=== PATIENT | female | born 1955 | race Caucasian/White ===

== ENCOUNTER 2022-02-10 13:56 | Emergency (ER) | payer MEDICARE ==
[~2022-02-10] VITALS: Ht 160 cm; Wt 68.0 kg
[2022-02-10 14:12] VITALS: BP_SYST 126
--- NOTE | 2022-02-10 15:03 | NUR ---
EKG GIVEN TO FOR INTERPRETATION.
[2022-02-10] MEDS ORDERED: SPIR25TA PO (15:12)
[2022-02-10] MEDS ORDERED: PROP10TA10 PO (15:12)
[2022-02-10] MEDS ORDERED: SIMV-43 PO (15:12)
[2022-02-10] MEDS ORDERED: FURO-150 PO (15:12)
[2022-02-10 15:29] LABS: BASOPHILS % (AUTO) 0.5 % (0.0-2.0); EOSINOPHILS # (AUTO) 0.3 K/uL (0.0-0.4); EOSINOPHILS % (AUTO) 7.4 % (0.0-4.0); HEMATOCRIT 26.4 % (36-48); HEMOGLOBIN 8.6 g/dL (12.0-16.0); LYMPHOCYTES # (AUTO) 0.6 K/uL (1.0-5.5); LYMPHOCYTES % (AUTO) 13.8 % (20.5-51.5); MEAN CORPUSCULAR HEMOGLOBIN 33 pg (27-31); MEAN CORPUSCULAR HGB CONC 33 % (32-36); MEAN CORPUSCULAR VOLUME 101 fL (79.0-98.0); MONOCYTES # (AUTO) 0.4 K/uL (0.0-1.0); MONOCYTES % (AUTO) 9.3 % (1.7-9.3); NEUTROPHILS # (AUTO) 2.9 K/uL (1.8-7.7); RED BLOOD CELL COUNT(AUTO) 2.62 MIL/uL (4.2-6.2); RED CELL DISTRIBUTION WIDTH 17.1 % (9.0-15.0); WHITE BLOOD COUNT (AUTO) 4.3 K/uL (4.8-10.8)
[2022-02-10 15:46] LABS: PLATELET COUNT (AUTO) 60 K/uL (130-430)
--- NOTE | 2022-02-10 16:13 | NUR ---
MD NOTIFIED. PATIENT IS MORE ALTERED AND SLOWER TO RESPOND.
[2022-02-10 16:15] LABS: ANION GAP 6 (5-15); CALCIUM 7.1 mg/dL (8.4-11.0); CHLORIDE 97 mmol/L (98-107); CREATININE 2.56 mg/dL (0.55-1.30); GLUCOSE 115 mg/dL (70-99); POTASSIUM 3.8 mmol/L (3.5-5.1); SODIUM SERUM 125 mmol/L (136-145); UREA NITROGEN, BLOOD 24 mg/dL (8-21)
[2022-02-10] MEDS ORDERED: LACTULOSE 20 GM/30 ML UDC PO ONE (16:15)
[2022-02-10 16:20] LABS: GFR AFRICAN AMERICAN 24 mL/min (>90)
[2022-02-10 16:23] LABS: ALANINE AMINOTRANSFERASE 43 U/L (12-78); ALBUMIN 1.1 g/dL (3.4-4.8); ASPARTATE AMINOTRANSFERASE 96 U/L (10-37)
--- NOTE | 2022-02-10 18:52 | NUR ---
Placed in room 08 . Placed on monitoring specialist, blood pressure machine and pulse oximeter. To gown for exam. Side rails up.
--- NOTE | 2022-02-10 19:22 | NUR ---
REPORT GIVEN TO TIN ABERNATHY
--- NOTE | 2022-02-10 19:35 | NUR ---
PT RESPONS TO VOICE. PT VTS ARE WITHIN NORMAL LIMITS. PT IS ADEUMATUS. PT IS IN BED WITH BED LOWERED, LOCKED AND RAIL UP, WILL CONTINUE TO MONITOR.
[2022-02-10] MEDS ORDERED: LACTULOSE 20 GM/30 ML UDC ONE (20:14)
--- NOTE | 2022-02-10 20:44 | NUR ---
INSERTEERD 16 FR WITH RADIOPAQUE STRIPE TUBE INTO HER LEFT SIMENTAL PT TOLARATED WELL. PLACEMENT CHECKED BY TRISH CASTLE, AND JOSEMANUEL CASTLE BY DOING A 20 CC AIRBOLUS. FLUSHED THE TUBE WITH 20 CC OF WATER BEFORE AND AFTER THE ADMIN OF LACTULOSE. PT 02 LEVEL IS STEADY AT 93 O2 SAT.
[2022-02-10] MEDS ORDERED: PANTOPRAZOLE SODIUM 40 MG/VIAL (PROTONIX) IVP ONE (23:45)
[2022-02-10] MEDS ORDERED: OCTREOTIDE ACETATE 500 MCG in NS 247.5 ML IV ONE (23:45)
[2022-02-11 00:49] VITALS: BP_SYST 138
[2022-02-11] MEDS ORDERED: cefTRIAXone 1 GM IVPB PREMIX 50 ML IV ONE (02:15)
--- NOTE | 2022-02-11 02:54 | NUR ---
Patient to be transferred to [facility] . Is being transferred due to higher level of care. Receiving facility has accepting physician and available space. ER physician has signed transfer form. Patient or responsible green party has agreed to transfer and signed form. Patient belongings inventoried and will be sent with patient. Copy of nursing notes, lab reports, EKG, Physicians Orders and X-rays to be sent with patient. Report called to at receiving facility. Receiving physician is . ambulance service has been called for transfer. ETA is .
== END 2022-02-11 02:45 | disposition short-term general hospital (02) ==
LOC: SED 13:56
DX: K72.90 Hepatic failure, unspecified without coma (principal); E87.1 Hypo-osmolality and hyponatremia; D61.818 Other pancytopenia; K76.9 Liver disease, unspecified; K92.2 Gastrointestinal hemorrhage, unspecified; Z79.899 Other long term (current) drug therapy; Z20.822 Contact with and (suspected) exposure to COVID-19
CPT/HCPCS: 36415; 70450; 71045; 76376; 80053; 82140; 82962; 84484; 85025; 87426; 93005; 96365; 96366; 96368; 96375; 99285; C9113; J0696